=== PATIENT | male | born 1965 | race Caucasian/White ===

== ENCOUNTER 2018-10-25 20:41 | Emergency (ER) | payer OTHER ==
[2018-10-25 21:05] VITALS: BP 133/88; PULSE 95; TEMP 99; BMI 28.1
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
== END 2018-10-25 22:23 | disposition home or self-care (01) ==
LOC: JERFT 20:41
DX: Z77.21 Contact with and (suspected) exposure to potentially hazardous body fluids (principal); Y35.891A Legal intervention involving other specified means, law enforcement official injured, initial encounter; Y93.89 Activity, other specified; Y92.89 Other specified places as the place of occurrence of the external cause; Y99.0 Civilian activity done for income or pay
CPT/HCPCS: 99281-25

== ENCOUNTER 2020-04-21 08:39 | Emergency (ER) | payer OTHER ==
[2020-04-21 09:12] VITALS: BP 134/87; TEMP 99; BMI 27.3
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
[2020-04-21 09:59] VITALS: PULSE 99
== END 2020-04-21 10:00 | disposition home or self-care (01) ==
LOC: FER 08:39
DX: S40.812A Abrasion of left upper arm, initial encounter (principal)
CPT/HCPCS: 99283-25